=== PATIENT | male | born 1945 | race Caucasian/White ===

== ENCOUNTER → 2018-11-18 | Outpatient (CLI) | payer OTHER | END | disposition home or self-care (01) | LOC: XY 08:53 | PROVIDERS: ATTEND Internal Medicine | DX: I65.29 Occlusion and stenosis of unspecified carotid artery (principal) | CPT/HCPCS: 93886 ==

== ENCOUNTER → 2019-01-29 | Outpatient (CLI) | payer OTHER ==
[2019-01-29 09:09] LABS: Folate (Folic Acid) 20.4 ng/mL (5.38-24)
== END | disposition home or self-care (01) ==
LOC: LAB 07:30
PROVIDERS: ATTEND Psychiatry & Neurology Neurology
DX: G62.9 Polyneuropathy, unspecified (principal)
CPT/HCPCS: 36415; 82607; 82746; 82951; 84155; 84165; 84443

== ENCOUNTER → 2019-02-16 | Outpatient (CLI) | payer OTHER | END | disposition home or self-care (01) | LOC: LAB 07:20 | PROVIDERS: ATTEND Psychiatry & Neurology Neurology | DX: E11.9 Type 2 diabetes mellitus without complications (principal) | CPT/HCPCS: 36415; 82947; 83036 ==

== ENCOUNTER 2021-10-25 09:11 | Inpatient (IN) | payer OTHER ==
[~2021-10-25] VITALS: Ht 177.8 cm; Wt 87.5 kg
[2021-10-25] MEDS ORDERED: SODIUM CHLORIDE 0.9% 1,000 ML IV ONE (10:45)
[2021-10-25 14:24] LABS: INR 1.12 (0.9-1.15)
[2021-10-25 15:26] LABS: Urine Bacteria MOD /hpf (None Seen); Urine Blood 1+ /uL (Negative); Urine Mucus FEW (None Seen); Urine Specific Gravity 1.013 (1.001-1.035); Urine WBC 1 /hpf (0 - 3)
[2021-10-25 16:47] LABS: BUN/Creatinine Ratio 23.4; Calcium 9.4 mg/dL (8.5-10.1); Potassium 4.3 mmol/L (3.5-5.1)
[2021-10-25 16:49] LABS: Basophils # (auto) 0.1 10 ^3/uL (0-0.2); Basophils % (auto) 0.9 % (0.0-2.0); Eosinophils # (auto) 0 10 ^3/uL (0-0.8); Eosinophils % (auto) 0.8 % (0.0-7.0); Hematocrit 42.4 % (41.0-53.0); Hemoglobin 14.7 g/dL (13.5-17.5); Lymphocytes # (auto) 1.1 10 ^3/uL (0.4-5.4); Lymphocytes % (auto) 19.8 % (10.0-50.0); Mean Corpuscular Hemoglobin 29.8 pg (28.0-32.0); Mean Corpuscular Hgb Conc. 34.6 g/dL (32.0-36.0); Monocytes # (auto) 0.5 10 ^3/uL (0-1.3); Monocytes % (auto) 9.1 % (0.0-12.0); Neutrophils % (auto) 69.4 % (37.0-80.0); Red Blood Cells 4.92 10^6/uL (4.5-5.90); Red Cell Distribution Width 13.3 % (11.8-14.3); White Blood Cell 5.7 10^3/uL (4.4-10.8)
[2021-10-25] MEDS ORDERED: GABA-339 PO (17:25)
[2021-10-25] MEDS ORDERED: ONDANSETRON HCL 4 MG/2 ML VIAL IV PRN (19:45)
[2021-10-25] MEDS: MORPHINE SULFATE 4 MG/ML SYR/VIAL ONE ×2 (20:03→20:10)
[2021-10-25] MEDS: ONDANSETRON HCL 4 MG/2 ML VIAL ONE ×2 (20:04→20:11)
[2021-10-25] MEDS: MORPHINE SULFATE INJECTION 2 MG/ML SYRG IV PRN (20:10)
[2021-10-25] MEDS ORDERED: HYDR-4902 PO (22:17)
[2021-10-25] MEDS: SODIUM CHLORIDE 0.9% 1,000 ML IV SCH (22:19)
[2021-10-26 05:00] VITALS: BP_SYST 101; BP_SYST 110; BP_DIAS 52; BP_DIAS 59
[2021-10-26] MEDS: MORPHINE SULFATE INJECTION 2 MG/ML SYRG IV PRN ×2 (06:02→23:43)
[2021-10-26 06:14] LABS: Basophils # (auto) 0 10 ^3/uL (0-0.2); Basophils % (auto) 0.6 % (0.0-2.0); Eosinophils # (auto) 0.1 10 ^3/uL (0-0.8); Eosinophils % (auto) 1.7 % (0.0-7.0); Hematocrit 40.2 % (41.0-53.0); Mean Corpuscular Hgb Conc. 34.8 g/dL (32.0-36.0); Mean Corpuscular Volume 86.4 fL (80.0-100.0); Monocytes # (auto) 0.6 10 ^3/uL (0-1.3); Monocytes % (auto) 9.9 % (0.0-12.0); Neutrophils # (auto) 4.3 10 ^3/uL (1.6-8.6); Neutrophils % (auto) 70.8 % (37.0-80.0); Red Blood Cells 4.65 10^6/uL (4.5-5.90); Red Cell Distribution Width 13.8 % (11.8-14.3); White Blood Cell 6.1 10^3/uL (4.4-10.8)
[2021-10-26 06:30] LABS: Potassium 4.2 mmol/L (3.5-5.1)
[2021-10-26 06:33] LABS: Albumin 3.1 g/dL (3.4-5.0); BUN/Creatinine Ratio 22.7; Calcium 8.9 mg/dL (8.5-10.1)
[2021-10-26 06:35] LABS: Bilirubin, Total 0.7 mg/dL (0.2-1.0); Total Protein 6.2 g/dL (6.4-8.2)
[2021-10-26 09:05] VITALS: BP 104/59
[2021-10-26] MEDS ORDERED: HYDROcodone-ACET 5/325MG TAB PO PRN (09:15)
[2021-10-26 13:00] VITALS: BP 123/72
[2021-10-26] MEDS: SODIUM CHLORIDE 0.9% 1,000 ML IV SCH ×2 (13:15→23:15)
[2021-10-26 17:03] VITALS: BP 113/66
[2021-10-26 20:00] VITALS: BP 101/58
[2021-10-26 22:00] VITALS: BP 101/58
[2021-10-27] VITALS (10 sets, daily range): BP systolic 97–149; BP diastolic 60–80
[2021-10-27 05:59] LABS: Basophils # (auto) 0 10 ^3/uL (0-0.2); Basophils % (auto) 0.8 % (0.0-2.0); Eosinophils # (auto) 0.1 10 ^3/uL (0-0.8); Eosinophils % (auto) 1.9 % (0.0-7.0); Hematocrit 40.9 % (41.0-53.0); Hemoglobin 14.6 g/dL (13.5-17.5); Lymphocytes # (auto) 1.3 10 ^3/uL (0.4-5.4); Lymphocytes % (auto) 20.7 % (10.0-50.0); Mean Corpuscular Hemoglobin 30.5 pg (28.0-32.0); Mean Corpuscular Hgb Conc. 35.6 g/dL (32.0-36.0); Mean Corpuscular Volume 85.7 fL (80.0-100.0); Monocytes # (auto) 0.6 10 ^3/uL (0-1.3); Monocytes % (auto) 9.4 % (0.0-12.0); Neutrophils # (auto) 4.1 10 ^3/uL (1.6-8.6); Neutrophils % (auto) 67.2 % (37.0-80.0); Nucleated Red Blood Cells % 0.3 %; Red Blood Cells 4.78 10^6/uL (4.5-5.90); White Blood Cell 6.1 10^3/uL (4.4-10.8)
[2021-10-27 06:18] LABS: Potassium 4.1 mmol/L (3.5-5.1)
[2021-10-27 06:28] LABS: Calcium 8.8 mg/dL (8.5-10.1)
[2021-10-27] MEDS: SODIUM CHLORIDE 0.9% 1,000 ML IV SCH (09:15)
[2021-10-27] MEDS: MORPHINE SULFATE INJECTION 2 MG/ML SYRG IV PRN ×2 (09:46→18:01)
[2021-10-27] MEDS ORDERED: ceFAZolin 1GM/50ML 100 ML IV ONE (11:17)
[2021-10-27] MEDS ORDERED: VANCOMYCIN HCL 1000 MG VL ONE (11:47)
[2021-10-27] MEDS ORDERED: MORPHINE SULF PF 5 MG/10 ML VIAL ONE (12:17)
[2021-10-27] MEDS ORDERED: KETOROLAC TROMETH 30 MG/ML 1ML VIAL ONE (12:18)
[2021-10-27] MEDS ORDERED: BUPIVACAINE W/ EPINEPH 0.25% INJ 50ML MDV ONE (12:20)
[2021-10-27] MEDS ORDERED: MEPERIDINE HCL (50 MG/ML) 1 ML VIAL ONE (12:31)
[2021-10-27] MEDS ORDERED: MIDAZOLAM HCL 2MG/2ML 2ml VIAL (1mg/ml) ONE ×2 (12:31→15:07)
[2021-10-27] MEDS ORDERED: fentaNYL CITRATE 100 MCG/2 ML VL ONE (12:31)
[2021-10-27] MEDS ORDERED: DexAMETHasone SOD PHOS 10MG/1ML VIAL INJ ONE (12:42)
[2021-10-27] MEDS ORDERED: PROPOFOL 10 MG/ML 20 ML IV ONE (12:51)
[2021-10-27] MEDS ORDERED: ONDANSETRON HCL 4 MG/2 ML VIAL IV PRN (13:00)
[2021-10-27] MEDS ORDERED: ePHEDrine SULFATE 50 MG/ML AMP IV PRN (13:00)
[2021-10-27] MEDS ORDERED: MIDAZOLAM HCL 2MG/2ML 2ml VIAL (1mg/ml) IV PRN (13:00)
[2021-10-27] MEDS ORDERED: MORPHINE SULFATE 4 MG/ML SYR/VIAL IV PRN (13:00)
[2021-10-27] MEDS ORDERED: HYDROmorphone HCL 2 MG/ML VL IV PRN (13:00)
[2021-10-27] MEDS ORDERED: LABETALOL HCL 5 MG/ML 4ML SYRINGE IV PRN (13:00)
[2021-10-27] MEDS ORDERED: TRANEXAMIC ACID 10 ML ONE ×2 (13:01→13:03)
[2021-10-27] MEDS ORDERED: EPINEPHrine HCL 1 MG/1 ML AMP ONE ×2 (13:20→13:23)
[2021-10-27] MEDS ORDERED: MEPERIDINE HCL (25 MG/ML) 1ML VIAL ONE (13:40)
[2021-10-27] MEDS ORDERED: HYDROcodone-ACET 10/325MG TAB PO PRN (14:45)
[2021-10-27] MEDS ORDERED: LACTATED RINGER'S 1,000 ML IV SCH (14:45)
[2021-10-27] MEDS: HYDROmorphone HCL 2 MG/ML VL ONE ×4 (15:10→15:43)
[2021-10-27] MEDS ORDERED: KETOROLAC TROMETH 30 MG/ML 1ML VIAL IV SCH (18:00)
[2021-10-27] MEDS: ceFAZolin 1GM/50ML 50 ML IV SCH (23:09)
[2021-10-27] MEDS: KETOROLAC TROMETH 30 MG/ML 1ML VIAL IV SCH (23:10)
[2021-10-28 05:00] VITALS: BP 103/61
[2021-10-28] MEDS: ceFAZolin 1GM/50ML 50 ML IV SCH (06:17)
[2021-10-28] MEDS: KETOROLAC TROMETH 30 MG/ML 1ML VIAL IV SCH ×3 (06:18→18:15)
[2021-10-28 06:49] LABS: Basophils # (auto) 0 10 ^3/uL (0-0.2); Basophils % (auto) 0.1 % (0.0-2.0); Eosinophils # (auto) 0 10 ^3/uL (0-0.8); Hematocrit 36.6 % (41.0-53.0); Hemoglobin 12.6 g/dL (13.5-17.5); Lymphocytes # (auto) 1.1 10 ^3/uL (0.4-5.4); Lymphocytes % (auto) 9.3 % (10.0-50.0); Mean Corpuscular Hemoglobin 29.5 pg (28.0-32.0); Mean Corpuscular Hgb Conc. 34.5 g/dL (32.0-36.0); Mean Corpuscular Volume 85.6 fL (80.0-100.0); Monocytes # (auto) 1.2 10 ^3/uL (0-1.3); Monocytes % (auto) 9.9 % (0.0-12.0); Neutrophils # (auto) 9.5 10 ^3/uL (1.6-8.6); Neutrophils % (auto) 80.7 % (37.0-80.0); Nucleated Red Blood Cells % 0.1 %; Red Blood Cells 4.27 10^6/uL (4.5-5.90); Red Cell Distribution Width 13.5 % (11.8-14.3); White Blood Cell 11.8 10^3/uL (4.4-10.8)
[2021-10-28 07:00] LABS: Calcium 8.4 mg/dL (8.5-10.1); Potassium 4.3 mmol/L (3.5-5.1)
[2021-10-28 08:00] VITALS: BP 100/50
[2021-10-28] MEDS: ENOXAPARIN SOD 40 MG/0.4 ML SYRINGE SC SCH (09:44)
[2021-10-28] MEDS ORDERED: SODIUM CHLORIDE 0.9% 500 ML IV ONE (11:30)
[2021-10-28 12:00] VITALS: BP 100/54
[2021-10-28] MEDS ORDERED: TIZA4TAB9 PO (12:10)
[2021-10-28] MEDS ORDERED: ACETAMINOPHEN 325 MG TAB PO PRN (15:15)
[2021-10-28] MEDS ORDERED: TIZANIDINE 2 MG PO PRN (15:15)
[2021-10-28 16:00] VITALS: BP 114/64
[2021-10-28] MEDS ORDERED: LACTATED RINGER'S 1,000 ML IV SCH (17:00)
[2021-10-28] MEDS: SODIUM CHLORIDE 0.9% 1,000 ML IV SCH (19:15)
[2021-10-28 22:00] VITALS: BP 104/51
[2021-10-29 05:00] VITALS: BP 115/49
[2021-10-29] MEDS: KETOROLAC TROMETH 30 MG/ML 1ML VIAL IV SCH ×4 (06:00→17:57)
[2021-10-29 06:39] LABS: Basophils # (auto) 0 10 ^3/uL (0-0.2); Basophils % (auto) 0.4 % (0.0-2.0); Eosinophils # (auto) 0 10 ^3/uL (0-0.8); Eosinophils % (auto) 0.7 % (0.0-7.0); Hematocrit 32.9 % (41.0-53.0); Hemoglobin 11.4 g/dL (13.5-17.5); Lymphocytes # (auto) 0.9 10 ^3/uL (0.4-5.4); Lymphocytes % (auto) 13.2 % (10.0-50.0); Mean Corpuscular Hemoglobin 29.8 pg (28.0-32.0); Mean Corpuscular Hgb Conc. 34.6 g/dL (32.0-36.0); Mean Corpuscular Volume 86.1 fL (80.0-100.0); Monocytes # (auto) 0.7 10 ^3/uL (0-1.3); Monocytes % (auto) 10.9 % (0.0-12.0); Neutrophils # (auto) 4.9 10 ^3/uL (1.6-8.6); Neutrophils % (auto) 74.8 % (37.0-80.0); Red Blood Cells 3.82 10^6/uL (4.5-5.90); Red Cell Distribution Width 13.6 % (11.8-14.3); White Blood Cell 6.6 10^3/uL (4.4-10.8)
[2021-10-29] MEDS: SODIUM CHLORIDE 0.9% 1,000 ML IV SCH (07:26)
[2021-10-29 09:00] VITALS: BP_SYST 112; BP_SYST 118; BP_DIAS 58; BP_DIAS 78
[2021-10-29] MEDS: ENOXAPARIN SOD 40 MG/0.4 ML SYRINGE SC SCH (09:19)
[2021-10-29] MEDS: GABAPENTIN 300 MG CAP PO PRN ×2 (09:19→21:53)
[2021-10-29] MEDS: BACLOFEN 10 MG TAB PO PRN ×2 (09:20→21:53)
[2021-10-29] MEDS ORDERED: POLYETHYLENE GLYCOL 17 GM PWDR PO PRN (11:00)
[2021-10-29 13:00] VITALS: BP 103/53
[2021-10-29 17:00] VITALS: BP 136/75
[2021-10-29 22:00] VITALS: BP 117/54
[2021-10-30] MEDS: KETOROLAC TROMETH 30 MG/ML 1ML VIAL IV SCH ×4 (00:19→18:16)
[2021-10-30 05:00] VITALS: BP 102/47
[2021-10-30 08:50] VITALS: BP_SYST 106; BP_SYST 129; BP_DIAS 44; BP_DIAS 63
[2021-10-30] MEDS: GABAPENTIN 300 MG CAP PO PRN ×2 (09:08→20:02)
[2021-10-30] MEDS: BACLOFEN 10 MG TAB PO PRN ×2 (09:08→20:02)
[2021-10-30] MEDS: ENOXAPARIN SOD 40 MG/0.4 ML SYRINGE SC SCH (09:08)
[2021-10-30 12:43] VITALS: BP 101/57
[2021-10-30 17:00] VITALS: BP 119/62
[2021-10-30 22:00] VITALS: BP 104/79
[2021-10-31] MEDS: KETOROLAC TROMETH 30 MG/ML 1ML VIAL IV SCH ×3 (01:17→14:56)
[2021-10-31 05:00] VITALS: BP 108/59
[2021-10-31 08:00] VITALS: BP 110/50
[2021-10-31] MEDS: BACLOFEN 10 MG TAB PO PRN (10:08)
[2021-10-31] MEDS: ENOXAPARIN SOD 40 MG/0.4 ML SYRINGE SC SCH (10:08)
[2021-10-31] MEDS: GABAPENTIN 300 MG CAP PO PRN (10:08)
[2021-10-31 12:20] VITALS: BP 106/54
[2021-10-31 14:19] VITALS: BP 106/54
== END 2021-10-31 15:54 | disposition home health service (06) | DRG 522 ==
LOC: ER 09:11 → OVERFLOW 17:07 → EAST 20:40
PROVIDERS: ADMIT Registered Nurse; ATTEND Internal Medicine
PROC: 0SRS0J9 Replacement of Left Hip Joint, Femoral Surface with Synthetic Substitute, Cemented, Open Approach (ICD-10-PCS; principal; 2021-10-27 12:36)
DX: S72.092A Other fracture of head and neck of left femur, initial encounter for closed fracture (principal); D62 Acute posthemorrhagic anemia; K59.00 Constipation, unspecified; M21.371 Foot drop, right foot; G89.29 Other chronic pain; M54.9 Dorsalgia, unspecified; I95.9 Hypotension, unspecified; D72.829 Elevated white blood cell count, unspecified; Z96.649 Presence of unspecified artificial hip joint; Z20.822 Contact with and (suspected) exposure to COVID-19; M12.811 Other specific arthropathies, not elsewhere classified, right shoulder; W18.39XA Other fall on same level, initial encounter; Y93.89 Activity, other specified; Z79.01 Long term (current) use of anticoagulants; Y92.098 Other place in other non-institutional residence as the place of occurrence of the external cause; Y99.8 Other external cause status
CPT/HCPCS: 36415; 71045; 72170; 73700; 80048; 80053; 81001; 82306; 83735; 84100; 85025; 85610; 85730; 86850; 86900; 86901; 93005; 93306; 96374; 97110; 97116; 97163; 97530; G0378; J0171; J0690; J1100; J1885; J2250; J2405; J2704

== ENCOUNTER → 2022-12-26 | Outpatient (CLI) | payer OTHER ==
[~2022-12-26] MED LIST: GABA-339 PO; HYDR-4902 PO; TIZA4TAB9 PO
[2022-12-26 07:28] LABS: Basophils # (auto) 0 10 ^3/uL (0-0.2); Basophils % (auto) 0.4 % (0.0-2.0); Eosinophils # (auto) 0.1 10 ^3/uL (0-0.8); Eosinophils % (auto) 1.1 % (0.0-7.0); Hematocrit 45.9 % (41.0-53.0); Hemoglobin 15.5 g/dL (13.5-17.5); Lymphocytes # (auto) 1.2 10 ^3/uL (0.4-5.4); Lymphocytes % (auto) 13.8 % (10.0-50.0); Mean Corpuscular Hemoglobin 29.6 pg (28.0-32.0); Mean Corpuscular Hgb Conc. 33.9 g/dL (32.0-36.0); Mean Corpuscular Volume 87.3 fL (80.0-100.0); Monocytes # (auto) 0.6 10 ^3/uL (0-1.3); Monocytes % (auto) 7.2 % (0.0-12.0); Neutrophils # (auto) 6.5 10 ^3/uL (1.6-8.6); Neutrophils % (auto) 77.5 % (37.0-80.0); Nucleated Red Blood Cells % 0.1 %; Red Blood Cells 5.26 10^6/uL (4.5-5.90); Red Cell Distribution Width 13.8 % (11.8-14.3); White Blood Cell 8.4 10^3/uL (4.4-10.8)
[2022-12-26 07:30] LABS: Urine Bacteria MANY /hpf (None Seen); Urine Blood 3+ /uL (Negative); Urine Hyaline Cast MOD /lpf (0 - 2); Urine Mucus FEW (None Seen); Urine Specific Gravity 1.016 (1.001-1.035); Urine WBC 7 /hpf (0 - 3)
[2022-12-26 08:01] LABS: Albumin 3.9 g/dL (3.4-5.0); Calcium 9.1 mg/dL (8.5-10.1); Potassium 4.9 mmol/L (3.5-5.1)
[2022-12-26 08:10] LABS: BUN/Creatinine Ratio 19.3 (10.0-20.0); Bilirubin, Total 0.7 mg/dL (0.2-1.0); Total Protein 7.7 g/dL (6.4-8.2)
== END | disposition home or self-care (01) ==
LOC: LAB 07:06
PROVIDERS: ATTEND Nurse Practitioner
DX: I10 Essential (primary) hypertension (principal); E78.5 Hyperlipidemia, unspecified
CPT/HCPCS: 36415; 80053; 80061; 81001; 84153; 84443; 85025

== ENCOUNTER 2023-01-10 06:15 | Inpatient (IN) | payer OTHER ==
[2023-01-08 09:41] LABS: Basophils # (auto) 0.1 10 ^3/uL (0-0.2); Eosinophils # (auto) 0.1 10 ^3/uL (0-0.8); Eosinophils % (auto) 2.1 % (0.0-7.0); Hematocrit 43.9 % (41.0-53.0); Hemoglobin 14.8 g/dL (13.5-17.5); Lymphocytes # (auto) 1.1 10 ^3/uL (0.4-5.4); Lymphocytes % (auto) 18.8 % (10.0-50.0); Mean Corpuscular Hemoglobin 29.4 pg (28.0-32.0); Mean Corpuscular Hgb Conc. 33.7 g/dL (32.0-36.0); Mean Corpuscular Volume 87.2 fL (80.0-100.0); Monocytes # (auto) 0.7 10 ^3/uL (0-1.3); Monocytes % (auto) 12.2 % (0.0-12.0); Neutrophils # (auto) 3.7 10 ^3/uL (1.6-8.6); Neutrophils % (auto) 65.9 % (37.0-80.0); Nucleated Red Blood Cells % 0.2 %; Red Blood Cells 5.04 10^6/uL (4.5-5.90); Red Cell Distribution Width 14.2 % (11.8-14.3); White Blood Cell 5.6 10^3/uL (4.4-10.8)
[2023-01-08 09:49] LABS: Urine Bacteria NONE SEEN /hpf (None Seen); Urine Blood TRACE /uL (Negative); Urine Mucus FEW (None Seen); Urine Specific Gravity 1.023 (1.001-1.035); Urine WBC 37 /hpf (0 - 3)
[2023-01-08 09:56] LABS: INR 1.13 (0.9-1.15); Partial Thromboplastin Time 35.4 sec (24.6-33.4)
[2023-01-08 10:51] LABS: Albumin 4.1 g/dL (3.4-5.0); Calcium 9.1 mg/dL (8.5-10.1); Potassium 5.2 mmol/L (3.5-5.1)
[2023-01-08 10:54] LABS: Bilirubin, Total 0.6 mg/dL (0.2-1.0); Total Protein 7.7 g/dL (6.4-8.2)
[~2023-01-10] VITALS: Ht 172.7 cm; Wt 89.1 kg
[~2023-01-10 06:15] MED LIST changes: +ASCO500T11 PO; +ASPI1TAB20 PO; +ATOR20TA50 PO; +CHOL100067 PO; +CYAN-17 PO; +FAMC500T12 PO; +VITA200C27 PO; +ZINC50TA7 PO; +[UNRECOGNIZED DRUG - CODE] PO
[2023-01-10] MEDS ORDERED: ceFAZolin 1GM/50ML 100 ML IV ONE (06:43)
[2023-01-10] MEDS ORDERED: ACETAMINOPHEN IV 100 ML IV ONE (06:43)
[2023-01-10] MEDS ORDERED: LIDOCAINE 2% JELLY 11ml (GLYDO) ONE (06:43)
[2023-01-10] MEDS ORDERED: ACETAMINOPHEN 500 MG TAB PO ONE (06:45)
[2023-01-10] MEDS: MAGNESIUM SULFATE 1GM/100ML 100 ML IV SCH ×2 (06:45→07:45)
[2023-01-10] MEDS ORDERED: GABAPENTIN 400 MG CAP PO ONE (06:45)
[2023-01-10] MEDS ORDERED: LIDOCAINE 4MG/ML IV SOLN 500 ML IV SCH (06:45)
[2023-01-10] MEDS ORDERED: LIDOCAINE 1% INJ PF 5ML AMP ONE (06:56)
[2023-01-10] MEDS ORDERED: SODIUM CHLORIDE LOCK 10 ML ONE ×5 (06:56→11:14)
[2023-01-10] MEDS ORDERED: ROCURONIUM 10MG/ML 10ML VIAL IV ONE (06:56)
[2023-01-10] MEDS ORDERED: DexAMETHasone SOD PHOS 10MG/1ML VIAL INJ ONE (06:56)
[2023-01-10] MEDS ORDERED: ONDANSETRON HCL 4 MG/2 ML VIAL ONE (06:56)
[2023-01-10] MEDS ORDERED: GLYCOPYRROLATE 0.2 MG/ML 1ML VIAL ONE (06:56)
[2023-01-10] MEDS ORDERED: fentaNYL CITRATE 100 MCG/2 ML VL ONE (06:59)
[2023-01-10] MEDS ORDERED: SUGAMMADEX 200mg/2ml Vial (100MG/ML) IV ONE (07:00)
[2023-01-10] MEDS ORDERED: PROPOFOL 10 MG/ML 20 ML IV ONE ×3 (07:07→10:13)
[2023-01-10] MEDS ORDERED: ACETAMINOPHEN IV 1000 MG/100ML (10MG/ML) IV ONE (07:15)
[2023-01-10] MEDS ORDERED: ePHEDrine SULFATE 50 MG/ML AMP ONE (07:50)
[2023-01-10] MEDS ORDERED: MINERAL OIL TOPICAL 10ml TOP ONE (08:35)
[2023-01-10] MEDS ORDERED: ceFAZolin 1GM VL ONE (11:14)
[2023-01-10] MEDS ORDERED: HYDROmorphone HCL 2 MG/ML VL/or syr IV PRN (11:45)
[2023-01-10] MEDS ORDERED: LABETALOL HCL 5 MG/ML 4ML SYRINGE IV PRN (11:45)
[2023-01-10] MEDS ORDERED: HYDROcodone-ACET 10/325MG TAB PO PRN (11:45)
[2023-01-10] MEDS ORDERED: ONDANSETRON HCL 4 MG/2 ML VIAL IV PRN ×2 (11:45)
[2023-01-10] MEDS ORDERED: NITROGLYCERIN 0.4 MG SL TAB SL PRN (11:45)
[2023-01-10] MEDS ORDERED: oxyCODONE HCL 5MG TAB PO PRN (11:45)
[2023-01-10] MEDS ORDERED: ePHEDrine SULFATE 50 MG/ML AMP IV PRN (11:45)
[2023-01-10] MEDS ORDERED: fentaNYL CITRATE 100 MCG/2 ML VL IV PRN (11:45)
[2023-01-10] MEDS: ceFAZolin 1GM/50ML 50 ML IV SCH ×2 (11:45→19:45)
[2023-01-10] MEDS ORDERED: MORPHINE SULFATE INJ 2 MG/ml SYRG IV PRN (11:45)
[2023-01-10] MEDS ORDERED: hydrALAZINE HCL 20 MG/ML VL IV PRN ×2 (11:45→14:45)
[2023-01-10] MEDS ORDERED: NALOXONE HCL 0.4 MG/ML VIAL IV PRN (11:45)
[2023-01-10] MEDS ORDERED: ACETAMINOPHEN 325 MG TAB PO PRN (11:45)
[2023-01-10] MEDS ORDERED: FLUMAZENIL 0.1 MG/ML INJ 10ML MDV IV PRN (11:45)
[2023-01-10] MEDS: D5W/SOD CHLO 0.9% 1,000 ML IV SCH ×2 (11:45→21:45)
[2023-01-10] MEDS: CYCLOBENZAPRINE HCL 10 MG TAB PO SCH ×2 (13:26→13:58)
[2023-01-10] MEDS: MORPHINE SULFATE INJ 2 MG/ml SYRG IV PRN ×2 (16:23→20:14)
[2023-01-10] MEDS ORDERED: PHENYLEPHRINE HCL 10 MG/ML VL IV ONE (16:29)
[2023-01-10] MEDS ORDERED: KETAMINE 50mg/ML 10ml Vial (500mg/10ml) IV ONE (16:29)
[2023-01-10 17:40] LABS: Basophils # (auto) 0 10 ^3/uL (0-0.2); Basophils % (auto) 0.1 % (0.0-2.0); Eosinophils # (auto) 0 10 ^3/uL (0-0.8); Hematocrit 42.2 % (41.0-53.0); Hemoglobin 14.3 g/dL (13.5-17.5); Lymphocytes # (auto) 0.5 10 ^3/uL (0.4-5.4); Lymphocytes % (auto) 6.1 % (10.0-50.0); Mean Corpuscular Hemoglobin 29.6 pg (28.0-32.0); Mean Corpuscular Volume 87.2 fL (80.0-100.0); Monocytes # (auto) 0.2 10 ^3/uL (0-1.3); Neutrophils # (auto) 7.4 10 ^3/uL (1.6-8.6); Neutrophils % (auto) 91.8 % (37.0-80.0); Nucleated Red Blood Cells % 0.1 %; Red Blood Cells 4.85 10^6/uL (4.5-5.90)
[2023-01-10 18:04] LABS: BUN/Creatinine Ratio 15.2 (10.0-20.0); Calcium 8.3 mg/dL (8.5-10.1); Potassium 4.3 mmol/L (3.5-5.1)
[2023-01-10 18:06] VITALS: BP 124/59
[2023-01-10 22:00] VITALS: BP 108/52
[2023-01-11] MEDS: MORPHINE SULFATE INJ 2 MG/ml SYRG IV PRN ×3 (00:33→09:42)
[2023-01-11] MEDS: DOCUSATE SOD 100 MG CAP PO SCH ×2 (00:34→09:41)
[2023-01-11 05:00] VITALS: BP 119/58
[2023-01-11] MEDS: CYCLOBENZAPRINE HCL 10 MG TAB PO SCH ×2 (06:27→15:41)
[2023-01-11] MEDS: D5W/SOD CHLO 0.9% 1,000 ML IV SCH (07:45)
[2023-01-11 08:00] VITALS: BP 125/58
[2023-01-11 09:00] VITALS: BP 125/58
[2023-01-11] MEDS ORDERED: D5W/SOD CHLO 0.9% 1,000 ML IV SCH (11:15)
[2023-01-11] MEDS ORDERED: DexAMETHasone SOD PHOS 10MG/1ML VIAL INJ IV ONE (12:45)
[2023-01-11 13:00] VITALS: BP 140/68
[2023-01-11 17:24] VITALS: BP 136/67
[2023-01-11 17:29] VITALS: BP 136/67
== END 2023-01-11 18:45 | disposition home health service (06) | DRG 472 ==
LOC: SUR 06:15 → TELE 11:36 → TELE-EAST 15:57
PROVIDERS: ADMIT Orthopaedic Surgery; ATTEND Internal Medicine
PROC: 0RG20A0 Fusion of 2 or more Cervical Vertebral Joints with Interbody Fusion Device, Anterior Approach, Anterior Column, Open Approach (ICD-10-PCS; principal; 2023-01-11)
PROC: 0RB30ZZ Excision of Cervical Vertebral Disc, Open Approach (ICD-10-PCS; 2023-01-11)
PROC: 01N10ZZ Release Cervical Nerve, Open Approach (ICD-10-PCS; 2023-01-11)
PROC: 00NW0ZZ Release Cervical Spinal Cord, Open Approach (ICD-10-PCS; 2023-01-11)
PROC: 4A11X4G Monitoring of Peripheral Nervous Electrical Activity, Intraoperative, External Approach (ICD-10-PCS; 2023-01-11)
DX: M48.02 Spinal stenosis, cervical region (principal); G99.2 Myelopathy in diseases classified elsewhere; M54.12 Radiculopathy, cervical region; E78.5 Hyperlipidemia, unspecified; G89.29 Other chronic pain; Z85.46 Personal history of malignant neoplasm of prostate; E66.9 Obesity, unspecified; Z68.29 Body mass index [BMI] 29.0-29.9, adult
CPT/HCPCS: 36415; 72040; 76000; 80048; 80053; 81001; 85025; 85610; 85730; 86850; 86870; 86900; 86901; 97163; G0378; J0131; J0690; J1100; J2405; J2704; J7042